=== PATIENT | female | born 1980 | race Caucasian/White ===

== ENCOUNTER 2021-03-08 08:07 | Emergency (ER) | payer BC, SELFPAY ==
--- NOTE | 2021-03-08 08:05 | ECG_ITS ---
APPROVED REPORT Exam: Resting ECG HR:74 bpm ECG Measurements Heart Rate 74 AXES ID 168 P 48 QRSd 94 QRS 16 QT 368 T 44 QTc 408 Conclusion Normal sinus rhythm Normal ECG Electronically signed by : Jimi Villareal MD 03/08/2021 19:55:49
[2021-03-08 08:09] VITALS: BP 137/88; PULSE 78; RESP 16; TEMP 36.6; O2SAT 98; BMI 41.1
--- NOTE | 2021-03-08 08:16 | XR_ITS ---
PROCEDURE INFORMATION: Exam: XR Chest Exam date and time: 03/08/2021 8:16 AM Age: 40 years old Clinical indication: Pain; Chest pressure; Additional info: Chest pain TECHNIQUE: Imaging protocol: XR of the chest. Views: 1 view. COMPARISON: No relevant prior studies available. FINDINGS: Lungs: No focal airspace disease. Pleural spaces: Unremarkable. No pleural effusion. No pneumothorax. Heart/Mediastinum: Cardiomediastinal silhouette is within normal limits. Bones/joints: Unremarkable. IMPRESSION: No acute cardiopulmonary abnormality.
[2021-03-08 08:25] LABS: Basophils % 0.7 % (0.1-2.0); Eosinophils # 0.1 K/mm3 (0.0-0.4); Eosinophils % 1.3 % (0.1-12.0); Hematocrit 39.8 % (37.0-47.0); Hemoglobin 13.6 g/dL (12.2-16.2); Lymphocytes # 2.2 K/mm3 (0.7-4.5); Lymphocytes % 36.2 % (10-50); Mean Corpuscular HGB Conc 34.2 g/dL (31.8-35.4); Mean Corpuscular Hemoglobin 26.7 pg (27.0-31.2); Mean Corpuscular Volume 78.1 fl (81-99); Mean Platelet Volume 7.8 fl (7.4-10.4); Monocytes # 0.3 K/mm3 (0.1-1.0); Monocytes % 4.8 % (1.7-9.3); Neutrophils # 3.5 K/mm3 (1.8-7.8); Neutrophils % 56.9 % (37.0-80.0); Platelet Count 352 K/mm3 (142-424); Red Cell Distribution Width 15.6 % (11.5-17.5); White Blood Count 6.1 K/mm3 (4.8-10.8)
[2021-03-08 08:26] LABS: Chloride 103 mmol/L (98-107)
--- NOTE | 2021-03-08 08:26 | HMH.EDGENADL ---
ED Disposition Clinical Impression: Racing heart beat Disposition: Home, Self-Care Condition on Discharge: Good Instructions: Anxiety and Panic Attacks (Alternative Therapy), DI for Anxiety -- Adult Additional Instructions: Please follow up with your primary care physician. Return to the emergency department for any new or concerning symptoms. Prescriptions: hydrOXYzine pamoate [Vistaril 25mg capsule] 25 mg PO Q8 PRN 28 Days #15 cap PRN Reason: Anxiety Prescription Printed Referrals: Lisset Cid APRN [Primary Care Provider] - - Critical Care Critical Care Time: No Attestation: On 03/08/21, the high probability of a clinically significant, sudden or life threatening deterioration of the following system(s) required my full and direct attention, intervention and personal management. The time I documented below is in addition to time spent performing reported procedures but includes the following listed in this critical care notation. Medical Decision Making - Medical Records Medical records reviewed: Yes: I reviewed the patient's medical records. - Kishore Inquiry Pt receiving controlled substance: No Vital Signs: 03/08/21 08:09 Temperature 98 F Temperature Source Oral Pulse Rate [Radial] 78 Respiratory Rate 16 Blood Pressure [Right Arm] 137/88 Blood Pressure Mean [Right Arm] 104 Blood Pressure Position [Right Arm] Sitting 02 Sat by Pulse Oximetry 98 Oxygen Delivery Method Room Air - Lab Data Lab results reviewed: Yes: I reviewed the patient's lab results. Lab Results 03/08/21 08:10: WBC 6.1, RBC 5.10, Hgb 13.6, Hct 39.8, MCV 78.1 L, MCH 26.7 L, MCHC 34.2, RDW 15.6, Plt Count 352, MPV 7.8, Neut % (Auto) 56.9, Lymph % (Auto) 36.2, [place] % (Auto) 4.8, Eos % (Auto) 1.3, Baso % (Auto) 0.7, Neut # (Auto) 3.5, Lymph # (Auto) 2.2, [place] # (Auto) 0.3, Eos # (Auto) 0.1, Baso # (Auto) 0.0 03/08/21 08:10: Sodium 139, Potassium 3.9, Chloride 103, Carbon Dioxide 24, Anion Gap 15.9 H, BUN 13, Creatinine 0.70, Estimated Creat Clear 180, Estimated GFR 92, Est GFR ( Amer) 111, Glucose 116 H, Calcium 9.1, Magnesium 1.9, Total Bilirubin 0.3, AST 21, ALT 20, Alkaline Phosphatase 85, Troponin I < 0.01, Total Protein 7.6, Albumin 4.6, Globulin 3.0, Albumin/Globulin Ratio 1.5 Result diagrams: 03/08/21 08:10 03/08/21 08:10 Orders (Tests/Meds): ED MEDICATIONS Discontinued Medications Generic Name Dose Route Start Last Admin Trade Name Yoan PRN Reason Stop Dose Admin Hydroxyzine Pamoate 25 mg 03/08/21 08:17 03/08/21 08:25 Hydroxyzine Pamoate 25mg Capsule PO 03/08/21 08:18 25 mg ONCE ONE Administration ORDERS Category Date Time Status CXR --portable [XR chest portable] Stat Exams 03/08/21 08:16 Taken Troponin I Q3H Lab 03/08/21 11:30 Ordered Troponin I Q3H Lab 03/08/21 14:30 Ordered Medical Decision Narrative: Patient is 40-year-old female presents emergency department chief complaint of rapid heart rate, historical irregular heart rate. Differential diagnosis in this patient includes A. fib with RVR, ACS, PVCs, electrolyte abnormality, anxiety among others. Given this plan order CBC, CMP, chest x-ray, EKG which showed normal sinus rhythm, devoid of PVCs, normal QRS, normal QT, will also order chest x-ray, CBC, CMP, treat patient with 25 p.o. Vistaril, and the temperature inspector and reassess. General Adult HPI - General Chief complaint: Chest Pain Stated complaint: chest pain Time Seen by Provider: 03/08/21 08:16 Mode of Arrival: Ambulatory Limitations: No Limitations Description of Symptoms (Recalled from ER Triage Doc. by RN): to ed per pvt car pt c/o intermittent episodes of heart racing which woke her up this am. c/o intermittent pain rt scapula, c/o sob like I need to take a big deep breath , nausea. pt denies any pain or rapid heart rate at present. denies any fever, cough, or leg pain - History of Present Illness HPI narrative: Patient is a 40-year-old female pres
[2021-03-08 08:27] LABS: Potassium 3.9 mmoL/L (3.5-5.1); Sodium 139 mmol/L (136-145)
[2021-03-08 08:29] LABS: Alanine Aminotransferase 20 U/L (12-78); Aspartate Amino Transferase 21 U/L (14-36); Blood Urea Nitrogen 13 mg/dl (7-17); Creatinine Clearance Estimated 180 mL/min (50-200); Estimated Glomerular Filt Rate 92 ml/min (>60); GFR (African American) 111 ML/MIN (>60)
[2021-03-08 08:30] VITALS: BP 134/91; PULSE 84; RESP 16; O2SAT 98
[2021-03-08 08:30] LABS: Albumin Level 4.6 g/dl (3.5-5.0); Albumin/Globulin Ratio 1.5 (1.1-1.8); Alkaline Phosphatase 85 U/L (38-126); Anion Gap 15.9 mEq/L (5-15); Bilirubin,Total 0.3 mg/dl (0.2-1.3); Calcium 9.1 mg/dl (8.4-10.2); Carbon Dioxide 24 mmol/L (22.0-30.0); Glucose 116 mg/dl (74-100); Magnesium 1.9 mg/dl (1.6-2.3); Total Protein,Serum 7.6 g/dl (6.3-8.2)
[2021-03-08 08:50] LABS: Troponin I < 0.01 ng/ml (0.00-0.034)
[2021-03-08 09:00] VITALS: BP 117/77; PULSE 78; RESP 16; O2SAT 98
[2021-03-08 09:12] VITALS: BP 117/77; PULSE 78; RESP 13; TEMP 36.8; O2SAT 96
== END 2021-03-08 09:14 | disposition home or self-care (01) ==
PROVIDERS: Emergency Provider Emergency Medicine; PCP Nurse Practitioner Family
DX: R07.9 Chest pain, unspecified (principal); R00.0 Tachycardia, unspecified; Z88.0 Allergy status to penicillin
CPT/HCPCS: 71045; 80053; 83735; 84484; 85025; 93005; 99282

== ENCOUNTER 2021-08-17 06:22 | Emergency (ER) | payer BC, SELFPAY ==
[2021-08-17] VITALS (16 sets, daily range): BP systolic 114–163; BP diastolic 61–82; PULSE 60–94; RESP 18; TEMP 36.8; O2SAT 96–100; BMI 41.5
--- NOTE | 2021-08-17 06:28 | ECG_ITS ---
APPROVED REPORT Exam: Resting ECG HR:82 bpm ECG Measurements Heart Rate 82 AXES MN 149 P 56 QRSd 92 QRS 60 QT 368 T 19 QTc 406 Conclusion SINUS RHYTHM NORMAL ECG UNCONFIRMED REPORT Electronically signed by : Jimi Villareal MD 08/19/2021 21:14:20
--- NOTE | 2021-08-17 06:38 | CT_ITS ---
PROCEDURE INFORMATION: Exam: CT Abdomen And Pelvis Without Contrast Exam date and time: 08/17/2021 7:13 AM Age: 40 years old Clinical indication: Abdominal pain; Flank; Right; Additional info: Abdominal pain- mostly right sided radiates TECHNIQUE: Imaging protocol: Computed tomography of the abdomen and pelvis without contrast. Radiation optimization: All CT scans at this facility use at least one of these dose optimization techniques: automated exposure control; mA and/or kV adjustment per patient size (includes targeted exams where dose is matched to clinical indication); or iterative reconstruction. COMPARISON: CR XR CHEST PORTABLE 03/08/2021 8:41 AM FINDINGS: Tubes, catheters and devices: Tubal devices are present. Liver: Normal. No mass. Gallbladder and bile ducts: Normal. No calcified stones. No ductal dilation. Pancreas: Normal. No ductal dilation. Spleen: The spleen is mildly prominent. Adrenal glands: Normal. No mass. Kidneys and ureters: At the level of L4-L5 there is a 2.5 mm calcification that appears to be outside of the right ureter and is likely in the ovarian vein. No definite ureteral calculus is identified and no evidence of hydronephrosis. Stomach and bowel: Unremarkable. No obstruction. No mucosal thickening. Appendix: The appendix is seen and is normal in appearance. Intraperitoneal space: Unremarkable. No free air. No significant fluid collection. Vasculature: Unremarkable. No abdominal aortic aneurysm. Lymph nodes: Several subcentimeter mesenteric lymph nodes. Urinary bladder: Unremarkable as visualized. Reproductive: Unremarkable as visualized. Bones/joints: Unremarkable. No acute fracture. Soft tissues: Unremarkable. IMPRESSION: 1. At the level of L4-L5 there is a 2.5 mm calcification that appears to be outside of the right ureter and is likely in the ovarian vein. No definite ureteral calculus is identified and no evidence of hydronephrosis. 2. No definite evidence of acute abdominal or pelvic pathology. Remainder of findings as described above.
[2021-08-17 06:46] LABS: Basophils # 0.2 K/mm3 (0-0.2); Basophils % 2.2 % (0.1-2.0); Eosinophils # 0.1 K/mm3 (0.0-0.4); Eosinophils % 1.2 % (0.1-12.0); Hematocrit 38.6 % (37.0-47.0); Hemoglobin 12.9 g/dL (12.2-16.2); Lymphocytes # 1.9 K/mm3 (0.7-4.5); Lymphocytes % 24.2 % (10-50); Mean Corpuscular HGB Conc 33.4 g/dL (31.8-35.4); Mean Corpuscular Hemoglobin 27.5 pg (27.0-31.2); Mean Corpuscular Volume 82.1 fl (81-99); Mean Platelet Volume 7.5 fl (7.4-10.4); Monocytes # 0.3 K/mm3 (0.1-1.0); Monocytes % 4.2 % (1.7-9.3); Neutrophils # 5.2 K/mm3 (1.8-7.8); Neutrophils % 68.1 % (37.0-80.0); Platelet Count 329 K/mm3 (142-424); Red Cell Distribution Width 15.2 % (11.5-17.5); White Blood Count 7.7 K/mm3 (4.8-10.8)
[2021-08-17 06:52] LABS: Amylase 45 U/L (30-110)
[2021-08-17 06:53] LABS: Alanine Aminotransferase 30 U/L (12-78); Albumin Level 4.5 g/dl (3.5-5.0); Albumin/Globulin Ratio 1.6 (1.1-1.8); Alkaline Phosphatase 104 U/L (38-126); Anion Gap 13.9 mEq/L (5-15); Aspartate Amino Transferase 25 U/L (14-36); Bilirubin,Total 0.2 mg/dl (0.2-1.3); Blood Urea Nitrogen 11 mg/dl (7-17); Calcium 10.1 mg/dl (8.4-10.2); Carbon Dioxide 26 mmol/L (22.0-30.0); Chloride 103 mmol/L (98-107); Creatinine Clearance Estimated 90 mL/min (50-200); Estimated Glomerular Filt Rate 92 ml/min (>60); GFR (African American) 111 ML/MIN (>60); Globulin 2.8 g/dL (1.3-3.2); Glucose 144 mg/dl (74-100); Potassium 3.9 mmoL/L (3.5-5.1); Sodium 139 mmol/L (136-145); Total Protein,Serum 7.3 g/dl (6.3-8.2)
[2021-08-17 06:59] LABS: Microscopic, Urine URINE MICROSCOPIC (MICROSCOPIC)
[2021-08-17 07:01] LABS: Appearance,Urine CLEAR (Clear); Bilirubin,Urine Negative (Negative); Blood, Urine Negative (Negative); Color,Urine YELLOW (Yellow); Glucose,Urine (UA) Negative (Negative); Ketones,Urine Negative (Negative); Leukocyte Esterase,Urine Negative (Negative); Nitrate,Urine Negative (Negative); PH,Urine 5.5 (5.0-8.5); Protein,Urine Negative (Negative); Specific Gravity, Urine <= 1.005 (1.005-1.030); Urobilinogen,Urine 0.2 EU/dl (0.2)
[2021-08-17 07:07] LABS: HCG Qualitative, Serum Negative (Negative)
[2021-08-17 07:11] LABS: Procalcitonin 0.047 ng/mL (0.0-2.0)
[2021-08-17 07:16] LABS: Bacteria,Urine Trace /lpf; WBC,Urine Occasional #/hpf (0-3)
--- NOTE | 2021-08-17 07:22 | PC.NURSE ---
pt back from radiology by wheelchair with air launch weapons technician
[2021-08-17 07:24] LABS: Erythrocyte Sedimentation Rate 45 mm/hr (0-20)
--- NOTE | 2021-08-17 08:19 | PC.NURSE ---
patient given water; okay's by Dr. Amaro
--- NOTE | 2021-08-17 08:25 | PC.NURSE ---
Dr. Amaro at speaking with patient
--- NOTE | 2021-08-17 08:27 | HMH.EDGENADL ---
ED Disposition Clinical Impression: Abdominal pain Qualifiers: Abdominal location: epigastric Qualified Code(s): R10.13 - Epigastric pain Disposition: Home, Self-Care Condition on Discharge: Good Instructions: DI for Acute Pain -- Adult Additional Instructions: call pcp for follow up Referrals: Lisset Cid APRN [Primary Care Provider] - - Critical Care Critical Care Time: No Attestation: On 08/17/21, the high probability of a clinically significant, sudden or life threatening deterioration of the following system(s) required my full and direct attention, intervention and personal management. The time I documented below is in addition to time spent performing reported procedures but includes the following listed in this critical care notation. Medical Decision Making - Medical Records Medical records reviewed: Yes: I reviewed the patient's medical records. - Kishore Inquiry Pt receiving controlled substance: No Vital Signs: 08/17/21 06:32 08/17/21 06:58 08/17/21 07:14 Temperature 98.2 F Temperature Source Oral Pulse Rate 75 78 Pulse Rate [Apical] 94 H Respiratory Rate 18 Blood Pressure 149/73 H 121/73 Blood Pressure [Right Arm] 155/78 H Blood Pressure Mean 112 89 Blood Pressure Mean [Right Arm] 103 Blood Pressure Source Blood Pressure Source [Right Arm] Automatic Cuff Blood Pressure Position Blood Pressure Position [Right Arm] Supine 02 Sat by Pulse Oximetry 99 97 100 Oxygen Delivery Method Room Air Room Air Room Air 08/17/21 08:06 08/17/21 08:13 08/17/21 08:28 Temperature Temperature Source Pulse Rate 76 69 64 Pulse Rate [Apical] Respiratory Rate Blood Pressure 119/75 131/73 114/62 Blood Pressure [Right Arm] Blood Pressure Mean 89 95 79 Blood Pressure Mean [Right Arm] Blood Pressure Source Automatic Cuff Automatic Cuff Blood Pressure Source [Right Arm] Blood Pressure Position Sitting Sitting Blood Pressure Position [Right Arm] 02 Sat by Pulse Oximetry 99 99 100 Oxygen Delivery Method Room Air Room Air Room Air 08/17/21 08:43 08/17/21 08:58 08/17/21 09:13 Temperature Temperature Source Pulse Rate 63 66 70 Pulse Rate [Apical] Respiratory Rate Blood Pressure 125/77 133/64 115/69 Blood Pressure [Right Arm] Blood Pressure Mean 93 87 89 Blood Pressure Mean [Right Arm] Blood Pressure Source Blood Pressure Source [Right Arm] Blood Pressure Position Blood Pressure Position [Right Arm] 02 Sat by Pulse Oximetry 98 99 100 Oxygen Delivery Method Room Air Room Air 08/17/21 09:28 Temperature Temperature Source Pulse Rate 60 Pulse Rate [Apical] Respiratory Rate Blood Pressure 119/61 Blood Pressure [Right Arm] Blood Pressure Mean 80 Blood Pressure Mean [Right Arm] Blood Pressure Source Blood Pressure Source [Right Arm] Blood Pressure Position Blood Pressure Position [Right Arm] 02 Sat by Pulse Oximetry 96 Oxygen Delivery Method - Lab Data Lab results reviewed: Yes: I reviewed the patient's lab results. Lab Results 08/17/21 06:33: WBC 7.7, RBC 4.70, Hgb 12.9, Hct 38.6, MCV 82.1, MCH 27.5, MCHC 33.4, RDW 15.2, Plt Count 329, MPV 7.5, Neut % (Auto) 68.1, Lymph % (Auto) 24.2, [place] % (Auto) 4.2, Eos % (Auto) 1.2, Baso % (Auto) 2.2 H, Neut # (Auto) 5.2, Lymph # (Auto) 1.9, [place] # (Auto) 0.3, Eos # (Auto) 0.1, Baso # (Auto) 0.2 08/17/21 06:33: C-Reactive Protein 21.0 H, Amylase 45 08/17/21 06:33: ESR 45 H 08/17/21 06:33: Sodium 139, Potassium 3.9, Chloride 103, Carbon Dioxide 26, Anion Gap 13.9, BUN 11, Creatinine 0.70, Estimated Creat Clear 90, Estimated GFR 92, Est GFR ( Amer) 111, Glucose 144 H, Calcium 10.1, Total Bilirubin 0.2, AST 25, ALT 30, Alkaline Phosphatase 104, Total Protein 7.3, Albumin 4.5, Globulin 2.8, Albumin/Globulin Ratio 1.6, Procalcitonin 0.047 08/17/21 06:33: Serum HCG, Qual Negative 08/17/21 06:47: Urine Color Yellow, Urine Appearance Clear, Urine pH 5.5, Ur Specifi
--- NOTE | 2021-08-17 08:30 | PC.NURSE ---
Bing José, RN at
--- NOTE | 2021-08-17 09:08 | CT_ITS ---
PROCEDURE INFORMATION: Exam: CTA Chest With Contrast Exam date and time: 08/17/2021 9:35 AM Age: 40 years old Clinical indication: Shortness of breath; Additional info: SOB, chest and epigastric pain-- CT abd already performed-- TECHNIQUE: Imaging protocol: Computed tomographic angiography of the chest with contrast. 3D rendering (Not supervised by radiologist): MIP and/or 3D reconstructed images were created by the technologist. Radiation optimization: All CT scans at this facility use at least one of these dose optimization techniques: automated exposure control; mA and/or kV adjustment per patient size (includes targeted exams where dose is matched to clinical indication); or iterative reconstruction. Contrast material: ISOVUE; Contrast volume: 70 ml; Contrast route: INTRAVENOUS (IV); COMPARISON: CR XR CHEST PORTABLE 03/08/2021 8:41 AM FINDINGS: Pulmonary arteries: Adequate pulmonary vascular opacification is present. Evaluation of the pulmonary arterial vessels demonstrates no CT evidence of pulmonary embolus. Aorta: Unremarkable. No aortic aneurysm. No aortic dissection. Lungs: Minimal dependent changes are present in the lung bases. Mild right hemidiaphragm elevation. Pleural spaces: Unremarkable. No pneumothorax. No pleural effusion. Heart: Unremarkable. No cardiomegaly. No pericardial effusion. Lymph nodes: Unremarkable. No enlarged lymph nodes. Bones/joints: Unremarkable. No acute fracture. Soft tissues: Unremarkable. IMPRESSION: Adequate pulmonary vascular opacification is present. Evaluation of the pulmonary arterial vessels demonstrates no CT evidence of pulmonary embolus.
--- NOTE | 2021-08-17 09:25 | PC.NURSE ---
Radiology notified of CTA chest for patient; spoke with Nelly
--- NOTE | 2021-08-17 09:42 | PC.NURSE ---
Pt states that her pain has improved
--- NOTE | 2021-08-17 09:44 | PC.NURSE ---
patient back from radiology by wheelchair with upholstery technician
== END 2021-08-17 11:27 | disposition home or self-care (01) ==
PROVIDERS: Emergency Provider Emergency Medicine; PCP Nurse Practitioner Family
DX: R10.13 Epigastric pain (principal); R11.2 Nausea with vomiting, unspecified; Z88.0 Allergy status to penicillin
CPT/HCPCS: 71275; 74176; 80053; 81001; 82150; 84145; 84703; 85025; 85651; 86140; 93005; 96361; 96374; 96375; 99284; Q9967

== ENCOUNTER 2024-10-21 11:15 | Emergency (ER) | payer BC, SELFPAY ==
[2024-10-21 12:00] VITALS: BP 156/60; PULSE 60; RESP 18; TEMP 36.9; O2SAT 97; BMI 43.7
--- NOTE | 2024-10-21 12:08 | XR_ITS ---
PROCEDURE INFORMATION: Exam: XR Left Knee Exam date and time: 10/21/2024 12:04 PM Age: 43 years old Clinical indication: Pain; Knee; Left; Additional info: L knee medial posterior tenderness / pop sound TECHNIQUE: Imaging protocol: Radiologic exam of the left knee. Views: 3 views. COMPARISON: No relevant prior studies available. FINDINGS: Bones/joints: No acute fracture or dislocation. Small suprapatellar joint effusion. Soft tissues: Normal. IMPRESSION: Small suprapatellar joint effusion.
[2024-10-21] MEDS: APAP/HYDROCODONE 325MG/7.5MG TAB 1 TAB PO (12:18)
--- NOTE | 2024-10-21 12:25 | HMH.EDGENADL ---
Discharge Plan Disposition Patient Disposition: Home, Self-Care Prescriptions Prescriptions: New meloxicam 7.5 mg tablet 7.5 mg PO DAILY 7 Days Qty: 7 0RF No Action hydroxyzine pamoate 25 MG capsule 25 mg PO Q8 PRN (Reason: Anxiety) 28 Days Qty: 15 0RF Rx Instructions: Take as needed for anxiety, do not take more than 3 within a 24 hour period. Referrals Follow up/Referrals: Anuj Peña PA [Primary Care Provider, Medical] - See instructions Rigo Cooley DO [Staff Physician, Orthopedics] - See instructions Activity Restrictions/Add. Instructions Additional Instructions/Restrictions: Today you were evaluated in the emergency department for left knee pain. The imaging of your left knee does not show any acute findings, however I am concerned about a ligamentous injury. Please wear the elastic wrap that we discussed, use your crutches that you already have. Please call Dr. Cooley's office Wednesday morning for a follow-up appointment. Take mobic with food, do not take additional NSAIDS. Clinical Impressions Clinical Impression: Acute pain of left knee Instructions Patient Instructions: DI for Knee Pain Print Language Print Language: Albanian Discharge ED Provider: Jonny Coombs General Adult HPI <Genny Moore APRN - Last Filed: 10/21/24 12:54> General Chief complaint: Extremity Injury, Lower Stated complaint: ao 10/19/24 L knee pain Time Seen by Provider: 10/21/24 12:01 Mode of Arrival: Ambulatory Source of Information: Patient Description of Symptoms (Recalled from ER Triage Doc. by RN): left knee pain. was walking and felt something crack has been unable to bare weight since. happened History of Present Illness HPI narrative: patient is a 43-year-old female no significant PMH who presents to the ED with complaints of left knee pain and inability to bear weight. 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 Related Data Previous Rx's ?Medication ?Instructions ?Recorded hydroxyzine pamoate 25 mg capsule 25 mg PO Q8 PRN Anxiety 28 days 03/08/21 #15 caps meloxicam 7.5 mg tablet 7.5 mg PO DAILY 7 days #7 tabs 08/02/25 Allergies Allergy/AdvReac Type Severity Reaction Status Date / Time PCN Allergy Intermediate I-HIVES Uncoded 03/09/17 15:18 [facility] <Genny Moore APRN - Last Filed: 10/21/24 12:54> [facility] Disclaimer: The information contained in this section may have been updated after the patient was seen, as this information can be updated by other users. Social History (Updated 10/21/24 @ 12:54 by Genny Moore APRN) Smoking Status: Never smoker alcohol intake: never current occupational status: employed Travel in the last 8 weeks?: None Have you lived/traveled outside [place] in past 30 days?: No Contact w/someone who lives/traveled outside US past 30 days?: No Exposure to someone with infectious disease in past 14 days?: No Do you have a fever (greater than 100.4 F or 38 C)?: No Have you tested positive for COVID-19?: No Exposed to someone with COVID-19 in past 14 days?: No Do you have a sore throat?: No Do you have a cough?: No Do you have any weakness?: No Do you have any diarrhea?: No Are you experiencing any unusual bleeding?: No Do you have any muscle aches/pain?: No Do you have any abdominal pain?: No Are you experiencing loss of taste or smell?: No Other Medical History Have you received the Flu Vaccine for this season: Yes Have you received the Pneumonia Vaccine: No <Genny Moore APRN - Last Filed: 10/21/24 12:54> ROS Obtained: Yes Systems reviewed as appropriate & no additional complaints except as documented Physical Exam <Genny Moore APRN - Last Filed: 10/21/24 12:54> General General appearance: alert and in no apparent distress Head Head exam: atraumatic Neck Neck exam: Present normal inspection Chest Chest inspection: Present normal inspection Respiratory Respiratory exam: Present normal lung sounds bilaterally Cardiovascular Cardiovascular exam: Present regular rate Extremities Exam Extremities exam: Present other (generalized swelling of the left knee, medial left knee tenderness upon palpation, posterior knee tenderness upon palpation. Neurovascular status intact. Pain with ROM of left lower extremity. Knee pain with extension of left foot.) Neurological Exam Neurological exam: Present alert and oriented X3 Medical Decision Making <Genny Moore APRN - Last Filed: 10/21/24 12:54> Medical Records Screening: Per USPSTF and CDC recommendations, given the prevalence of disease in our region, it is our hospital?s policy to screen for HIV and viral Hepatitis for all patients aged 18 and over and those with ongoing risk factors. Kishore Inquiry Pt receiving controlled substance: No Vital Signs: 10/21/24 12:00 10/21/24 13:00 Temperature 98.4 F 98.4 F Temperature Source Oral Oral Pulse Rate 79 Pulse Rate [Right] 60 Respiratory Rate 18 16 Blood Pressure 145/78 H Blood Pressure [Left Arm] 156/60 H Blood Pressure Mean [Left Arm] 92 Blood Pressure Source Automatic Cuff Blood Pressure Position Sitting 02 Sat by Pulse Oximetry 97 Oxygen Delivery Method Room Air Room Air Orders (Tests/Meds): ED MEDICATIONS Discontinued Medications Generic Name Dose Route Start Last Admin Trade Name Freq PRN Reason Stop Dose Admin Hydrocodone Bitart/Acetaminophen 1 tab 10/21/24 12:09 10/21/24 12:18 Apap/Hydrocodone 325mg/7.5mg Tab PO 10/21/24 12:10 1 tab ONCE ONE Administration ORDERS Category Date Time Status Knee XR left 3 views [XR knee LT 3V] Stat Exams 10/21/24 12:08 Completed Medical Decision Narrative: In summary, patient is a 43-year-old female no significant PMH who presents to the ED with complaints of left knee pain and inability to bear weight. 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 Today she is unable to ambulate, ambulated into the ED with her neighbors crutches. Denies any previous injury to this knee. Has not had anything for pain prior to arrival. Denies fever, chills, body aches, redness, warmth, trauma, chest pain, shortness of breath. Upon initial evaluation patient is alert, oriented and cooperative. She is stable. Physical exam remarkable for generalized swelling of the left knee, medial left knee tenderness upon palpation, posterior knee tenderness upon palpation. Neurovascular status intact. Pain with ROM of left lower extremity. Knee pain with extension of left foot. Discussed with patient that she most likely has meniscal injury, we will obtain x-ray and administer pain medication. I informally reviewed the x-ray, no acute findings noted. Discussed with patient to obtain the knee brace, continue to use her crutches that she has at home. Advised her to follow-up with Dr. Cooley Wednesday. We discussed return precautions to the ED. I advised that I sent her prescription for Mobic to the pharmacy, advised her not to take additional NSAIDs with this and to take with food. <Jonny Coombs MD - Last Filed: 10/21/24 19:17> Vital Signs: 10/21/24 12:00 10/21/24 13:00 Temperature 98.4 F 98.4 F Temperature Source Oral Oral Pulse Rate 79 Pulse Rate [Right] 60 Respiratory Rate 18 16 Blood Pressure 145/78 H Blood Pressure [Left Arm] 156/60 H Blood Pressure Mean [Left Arm] 92 Blood Pressure Source Automatic Cuff Blood Pressure Position Sitting 02 Sat by Pulse Oximetry 97 Oxygen Delivery Method Room Air Room Air Orders (Tests/Meds): ED MEDICATIONS Discontinued Medications Generic Name Dose Route Start Last Admin Trade Name Yoan PRN Reason Stop Dose Admin Hydrocodone Bitart/Acetaminophen 1 tab 10/21/24 12:09 10/21/24 12:18 Apap/Hydrocodone 325mg/7.5mg Tab PO 10/21/24 12:10 1 tab ONCE ONE Administration ORDERS Category Date Time Status Knee XR left 3 views [XR knee LT 3V] Stat Exams 10/21/24 12:08 Completed Medical Decision Narrative: In summary, patient is a 43-year-old female no significant PMH who presents to the ED with complaints of left knee pain and inability to bear weight. 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 Today she is unable to ambulate, ambulated into the ED with her neighbors crutches. Denies any previous injury to this knee. Has not had anything for pain prior to arrival. Denies fever, chills, body aches, redness, warmth, trauma, chest pain, shortness of breath. Upon initial evaluation patient is alert, oriented and cooperative. She is stable. Physical exam remarkable for generalized swelling of the left knee, medial left knee tenderness upon palpation, posterior knee tenderness upon palpation. Neurovascular status intact. Pain with ROM of left lower extremity. Knee pain with extension of left foot. Discussed with patient that she most likely has meniscal injury, we will obtain x-ray and administer pain medication. I informally reviewed the x-ray, no acute findings noted. Discussed with patient to obtain the knee brace, continue to use her crutches that she has at home. Advised her to follow-up with Dr. Cooley Wednesday. We discussed return precautions to the ED. I advised that I sent her prescription for Mobic to the pharmacy, advised her not to take additional NSAIDs with this and to take with food. I was consulted by the RODNEY, and we discussed the complexity of the problems being addressed. I approve the treatment and management plan for this patient's care in the emergency department, thus performing a substantive portion of the medical decision making. Jonny Coombs MD Critical Care <Genny Moore APRN - Last Filed: 10/21/24 12:54> Critical Care Time Critical Care Time: No
[2024-10-21 13:00] VITALS: BP 145/78; PULSE 79; RESP 16; TEMP 36.9; O2SAT 99
== END 2024-10-21 13:01 | disposition home or self-care (01) ==
PROVIDERS: Emergency Provider Student in an Organized Health Care Education/Training Program; PCP Student in an Organized Health Care Education/Training Program
DX: M25.562 Pain in left knee (principal)
CPT/HCPCS: 73562; 99283

== ENCOUNTER 2024-10-27 09:56 | Outpatient (CLI) | payer BC, SELFPAY ==
--- NOTE | 2024-10-27 10:00 | MR_ITS ---
FINAL REPORT CLINICAL HISTORY: Knee injury, pain medial and lateral, instability, nki FINDINGS: Multi planar MR imaging was performed of the left knee. The anterior and posterior cruciate ligaments are intact. The quadriceps and patellar tendons are intact. There is a large tear of the posterior horn of the medial meniscus. Linear signal extending into the anterior horn also represents a tear. The medial and lateral collateral ligaments appear intact. The medial and lateral retinacula appear intact. There is no evidence of bone marrow edema or osteochondral defect. There is a small joint effusion. Popliteal cyst measures 6 cm in craniocaudal dimension. IMPRESSION: Tear involved in the anterior and posterior horns of the medial meniscus. Popliteal cyst. Reviewed, Interpreted and Dictated by Florencio Bravo MD Transcribed by Cindi Quintanilla Authenticated and [facility]
== END 2024-10-27 23:59 | disposition home or self-care (01) ==
LOC: RAD 09:57
PROVIDERS: PCP Student in an Organized Health Care Education/Training Program; Visit Provider Physician Assistant
DX: S83.242A Other tear of medial meniscus, current injury, left knee, initial encounter (principal); M71.22 Synovial cyst of popliteal space [Baker], left knee
CPT/HCPCS: 73721

== ENCOUNTER 2024-11-14 10:39 | Outpatient (CLI) | payer BC, SELFPAY ==
[2024-11-14 08:21] VITALS: BMI 42.9
--- NOTE | 2024-11-14 10:54 | XR_ITS ---
FINAL REPORT CLINICAL HISTORY: pre op surgery- lt knee hypertension FINDINGS: 2 views of the chest were obtained . The heart is normal in size. The mediastinum is within normal limits. The lungs are clear. There is no pneumothorax. Osseous structures are unremarkable. IMPRESSION: No acute cardiopulmonary process. Reviewed, Interpreted and Dictated by Rani Méndez MD Transcribed by Janina Vu Authenticated and [facility]
--- NOTE | 2024-11-14 11:18 | ECG_ITS ---
APPROVED REPORT Exam: Resting ECG HR:58 bpm ECG Measurements Heart Rate 58 AXES NH 168 P 41 QRSd 101 QRS 25 QT 397 T 21 QTc 393 Conclusion SINUS BRADYCARDIA o/w normal ECG UNCONFIRMED REPORT Electronically signed by : Jimi Villareal MD 11/17/2024 11:59:10
[2024-11-14 11:38] LABS: Chloride 101 mmol/L (98-107)
[2024-11-14 11:39] LABS: Potassium 3.9 mmoL/L (3.5-5.1); Sodium 138 mmol/L (136-145)
[2024-11-14 11:42] LABS: Anion Gap 12.9 mEq/L (5-15); Blood Urea Nitrogen 13 mg/dl (7-17); Calcium 9.1 mg/dl (8.4-10.2); Carbon Dioxide 28 mmol/L (22.0-30.0); Creatinine Clearance Estimated 87 mL/min (50-200); Creatinine,Serum 0.70 mg/dl (0.52-1.04); Estimated Glomerular Filt Rate 90 ml/min (>60); GFR (African American) 109 ML/MIN (>60); Glucose 172 mg/dl (74-100)
[2024-11-14 11:52] LABS: HCG Qualitative, Serum Negative (Negative)
[2024-11-14 11:53] LABS: Hematocrit 33.0 % (37.0-47.0); Hemoglobin 10.6 g/dL (12.2-16.2); Immature Granulocytes % 0.4 %; Mean Corpuscular HGB Conc 32.1 g/dL (31.8-35.4); Mean Corpuscular Hemoglobin 27.0 pg (27.0-31.2); Mean Corpuscular Volume 84.2 fl (81-99); Nucleated Red Blood Cells % 0 %; Platelet Count 327 K/mm3 (142-424); Red Blood Count 3.92 M/mm3 (4.20-5.40); Red Cell Distribution Width-SD 45.8 fL; White Blood Count 7.7 K/mm3 (4.8-10.8)
== END 2024-11-14 23:59 | disposition home or self-care (01) ==
LOC: PREOP 10:39
PROVIDERS: PCP Student in an Organized Health Care Education/Training Program; Visit Provider Orthopaedic Surgery
DX: Z01.810 Encounter for preprocedural cardiovascular examination (principal); Z01.811 Encounter for preprocedural respiratory examination; Z01.812 Encounter for preprocedural laboratory examination; I10 Essential (primary) hypertension; R00.1 Bradycardia, unspecified; R94.31 Abnormal electrocardiogram [ECG] [EKG]
CPT/HCPCS: 71046; 80048; 84703; 85025; 93005

== ENCOUNTER 2024-11-15 08:16 | Day surgery (SDC) | payer BC, SELFPAY ==
[2024-11-14 10:45] VITALS: BP 154/76; PULSE 76; RESP 17; TEMP 36.6; O2SAT 96
[2024-11-14 11:00] VITALS: BP 137/86; PULSE 68; RESP 19; TEMP 36.6; O2SAT 98
[2024-11-14 13:35] VITALS: BMI 42.9
[2024-11-15] VITALS (8 sets, daily range): BP systolic 141–187; BP diastolic 59–96; PULSE 65–93; RESP 18; TEMP 36.6–36.9; O2SAT 93–100
--- NOTE | 2024-11-15 08:45 | EXP.ANES.CKL ---
[facility] Disclaimer: The information contained in this section may have been updated after the patient was seen, as this information can be updated by other users. Medical History Anxiety Anemia HTN (hypertension) Surgical History History of tonsillectomy History of wisdom tooth extraction Family History Other Family history of heart disease Social History Smoking Status: Never smoker alcohol intake: never substance use type: denies use current occupational status: employed Travel in the last 8 weeks?: Inside the [place] [facility] Anesthesia Checklist Patient Identification Patient Identification: Arm Band and Verbal (Name & ) Structural Data Admitted From: Home Planned Operative Procedure/s: Left knee arthroscopy Consent for Planned Operative Procedure(s) Verified: Yes Verified Documents: Surgical Consent NPO Status Verified Time NPO: 00:00 Chart Verification Results Verified: ECG Additional verifications Anesthesia Reactions: No Hx Blood Transfusions: No Blood Transfusion Reaction: No Airway Assessment Mallampati Score:: Class II C-Spine Mobility Assessed: Yes TMJ Mobility Assessed: Yes Dentition: Good Dentition Neurological Assessment Level of Consciousness: Awake, Alert and Appropriate Hx Seizures: No Numbness or tingling in extremities: No Anesthesia Plan Anesthesia Risk discussed: Yes Anesthesia Plan: Verified ASA Class: II Anesthesia Type: General
[2024-11-15] MEDS: CLINDAMYCIN PHOSPHATE/D5W 900 MG/50 ML PIGGYBACK 100 MG IV (09:01)
[2024-11-15] MEDS: BUPIVACAINE 0.25% 30ML VIAL 75 MG (09:31)
[2024-11-15] MEDS: SODIUM CHLORIDE IRRIG SOLUTION 12,000 ML 25 ML IR (09:32)
--- NOTE | 2024-11-15 10:21 | EXP.ANES.I ---
[facility] Anesthesia Record Part I Anesthesia Record I Intake, IV Amount: 750 Hydration: Adequate Estimated blood loss (mL): 0 Urine output (mL): 0 Blood Products used (#): none Blood Pressure: 187/87 SaO2: 93 Pulse Rate: 93 Airway Patency: Patent Respiratory Rate: 18 Temperature: 98.4 F Patient is:: Drowsy and Stable Stable to PACU at:: 10:11
[2024-11-15] MEDS: HYDROMORPHONE 2MG/ML SYRINGE 0.5 MG IV (10:24)
--- NOTE | 2024-11-15 10:48 | EXP.OP.NOTE ---
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 Left knee marked with yes and my initials. Transferred operative suite. Placed upon the operating bed. General anesthesia administered airway secured. Left lower extremity prepped and draped within the knee naqvi. Once prepped and draped final operative timeout performed to identify proper patient procedure and extremity. Everyone involved in the case agreed. Is no counter indications beginning. Did receive preoperative antibiotics. Marking pen was used to harrison the bony landmarks of the knee and standard portal sites. Esmarch was used to exsanguinate the extremity pneumatic tourniquet inflated to 300 mmHg. Skin knife is used to incise standard anterior lateral portal and blunt with trocar was placed in the patellofemoral joint exchange with a camera. I swept directly into the medial joint line where the anterior medial portal was made with the help of an 18-gauge spinal needle. Within the medial joint line a probe was placed there was tearing of the body and posterior horn of the medial meniscus using a combination of straight biter and sucker shaver partial medial meniscectomy was performed back to [facility]. Once this is complete evaluation of the medial femoral condyle was performed a probe was placed there was diffuse grade III chondromalacia along the most medial rim of the medial femoral condyle there was some impinging synovitis and thickening of scar tissue medially which was debrided with the sucker shaver which allowed for the knee to be flexed and extended without impingement. Attention is brought intercondylar notch the ACL seen and intact tension about the lateral joint line the lateral joint line was pristine there was an intact meniscus intact cartilage. Scope into the medial and lateral gutters and no further pathology was seen cameras removed the joint was drained local anesthesia infiltrated the portal sites skin closed with nylon stitch sterile dressing placed from toe to thigh patient recommend esthesia taken recovery in stable condition Condition: stable Disposition: PACU Complications:: None apparent
--- NOTE | 2024-11-15 14:50 | P.PNANES_ITS ---
[facility] Anesthesia Record Part II Anesthesia Record Part II Discharge Time: 10:41 Destination: Surgical Day Care (OP Surgery) PACU nurse assessment reviewed?: Yes Patient Condition:: Good Anesthesia Complications:: None Swallowing reflex intact?: Yes Airway Patency: Patent Cyanosis?: No Blood Pressure: 141/77 SaO2: 100 Respiratory Rate: 18 Pulse Rate: 70 Temperature: 98.4 F Mental Status: Alert & Oriented Pain level:: 5 Nausea and/or vomitting:: None Intake, IV Amount: 0 Hydration: Adequate
== END 2024-11-15 11:55 | disposition home or self-care (01) ==
PROVIDERS: PCP Student in an Organized Health Care Education/Training Program; Visit Provider Orthopaedic Surgery
PROC: (CPT 29870; principal; 2024-11-15 10:30)
DX: S83.242A Other tear of medial meniscus, current injury, left knee, initial encounter (principal); X58.XXXA Exposure to other specified factors, initial encounter; M94.272 Chondromalacia, left ankle and joints of left foot; F41.9 Anxiety disorder, unspecified; I10 Essential (primary) hypertension; Z88.0 Allergy status to penicillin; Z79.899 Other long term (current) drug therapy
CPT/HCPCS: 29881; 96374; J0665; J0736; J1100; J1171; J2003; J2250; J2405; J2704; J3010

== ENCOUNTER 2025-01-17 09:00 | Outpatient (RCR) | payer BC, SELFPAY ==
--- NOTE | 2025-01-09 13:47 | HMH.PTOPEV ---
PT Evaluation Rehab PT Outpatient Evaluation Start: 01/09/25 13:05 Freq: Status: Active Protocol: Document 01/09/25 13:05 JAYLENEFILI (Rec: 01/09/25 13:47 KRAIG [id number]) E-signed By Jayesh Wilburn, PT Outpatient Therapy Subjective History Subjective History Pt is a 44 yof who presents Status post left knee arthroscopy with partial medial meniscectomy performed on 11/15/2024. Pt reports that she has held off of PT due to also having a hysterectomy in November. Pt reports that overall her pain has improved since having her knee surgery. Pt reports that she still has some difficulty with walking longer periods and reports episodes of knee instability and buckling. Pt reports that she has substantial difficulty with squatting and a substantial difficulty with stairs. Pt reports that she is currently on a 10# lifting restriction from the hysterectomy. Pt denies any other remarkable PMH. 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 Chief Complaint Pain,Stiff,Gives out/Unstable,Weakness Symptom Type Sharp,Stabbing,Burning Symptoms Relieved By Ice Symptoms Aggravated Standing,Physical Activity,Walking,Lifting By Prior Functional None Limitations Current Functional Lifting,Housework,Standing,Squatting,Walking,Stairs, Limitations Balance Symptom Description Intermittent,Activity Dependent Level of pain today 0 (0-10) Pain scale - at its 0 best (0-10) Pain scale - at its 8 worst (0-10) Hip/Knee Eval Gait Observation General Gait Pattern Antalgic Gait,Decrease Weight Bear (L),Decrease Stride Observation Lngth (R) Assistive Device Assistive Devices None / NA Palpation Tenderness left Knee Palpation Tenderness Finding Knee Palpation TTP 3/4 to inferior patella and patellar tendon Overall Comment MMT Hip Flexion Strength 4- Good- Grade Hip Abduction 4 Good Strength Grade Hip Adduction 4- Good- Strength Grade Hip Extension 3+ Fair+ Strength Grade Knee Extension 4- Good- Strength Grade Knee Flexion 4 Good Strength Grade ROM Knee Extension 0 Active Range of Motion (degrees) Knee Extension 0 Passive Range of Motion (degrees) Knee Flexion Active 106 Range of Motion ( degrees) Knee Flexion Passive 108 Range of Motion ( degrees) Lower Extremity Functional Index Activities Today, do you or would you have any difficulty at all with: a.Any of your usual A little bit of difficulty work, housework or school activities b. Your usual Moderate difficulty hobbies, recreational or sporting activities c. Getting into or No difficulty out of the bath d. Walking between No difficulty rooms e. Putting on your A little bit of difficulty shoes or socks f. Squatting Quite a bit of difficulty g. Lifting an object No difficulty , like a bag of groceries from the floor h. Performing light No difficulty activities around your home i. Performing heavy Quite a bit of difficulty activities around your home j. Getting into or No difficulty out of a car k. Walking 2 blocks A little bit of difficulty l. Walking a mile A little bit of difficulty m. Going up or down Moderate difficulty 10 stairs (about 1 flight of stairs) n. Standing for 1 A little bit of difficulty hour o. Sitting for 1 No difficulty hour p. Running on even Extreme difficulty or unable to perform activity ground q. Running on uneven Extreme difficulty or unable to perform activity ground r. Making sharp Extreme difficulty or unable to perform activity turns while running fast s. Hopping Extreme difficulty or unable to perform activity t. Rolling over in No difficulty bed LEFI Score Lower Extremity 49 Functional Index Score Outpatient Therapy Assessment Impairments Problems/ Palpation Tenderness,Impaired Range of Motion,Impaired Impairmments Strength,Impaired Gait Pattern,Impaired Walking, Impaired Standing,Impaired Lifting,Impaired Household Care,Impaired Stair Climbing,Impaired Squatting, Impaired Work Activities,Impaired Balance,Subjective C/ O Pain,Impaired Self Care/Self Management Prognosis Rehab Potential Good Comment w HEP compliance Clinical Impression Consistent with Yes Diagnosis Consistent with L knee arthroscopy Additional details: s/p L knee arthroscopy performed on 11/15/2024 PT Patient Goals PT Patient Goals PT Short Term In 4 weeks: Patient Goals 1. Patient will improve strength of L hip/knee complex to 4/5 globally to improve gait mechanics, improve static/dynamic balance and to decrease fall risk. 2. Patient will demonstrate a reduction in trigger point sensitivity to Grade 2 with manual palpation to improve comfort during activity and soft tissue mobility. 3. Patient will improve LEFS score to 59/80 to demonstrate improved functional mobility and increased independence with ADLs. 4. Patient will demonstrate improved balance by maintaining tandem stance for 30s with each foot placed forward, on an even surface, without upper extremity support to demonstrate a reduced fall risk. 5. Patient will report a 48 hour average pain of 5/10 on the numeric pain rating scale to demonstrate improvement in quality of life and increased functional capacity. 6. Pt will demonstrate HEP compliance by completing prescribed HEP 4-5x/week. 7. Pt will improve L knee ROM to 0-120 in order to demonstrate improved gait mechanics and other functional movement patterns. PT Brokerage Branch Manager Patient In 8 weeks: Goals 1. Patient will improve strength of L hip/Knee complex to 5/5 globally to improve gait mechanics, improve static/dynamic balance and to decrease fall risk. . 2. Patient will report a 48 hour average pain of 2-3/10 on the numeric pain rating scale to demonstrate improvement in quality of life and increased functional capacity. 4. Pt will be able to ascend/descend a flight of stairs with reciprocal stepping pattern and no hand rail to demonstrate improvements in home and community mobility . 5. Patient will demonstrate improved balance by performing tandem walking on an unstable surface for 10 feet without loss of balance or needed mental health assistant to demonstrate a reduced fall risk and improved community ambulation. 6. Patient will be able to stand/walk for 1 hour at one time to demonstrate improved community ambulation for activities, such as grocery shopping. 7. Pt will perform 10 [id number] from a standard chair without upper extremity assistance to demonstrate improved in-home mobility, decreased fall risk and improved LE strength. 8. Pt will be able to perform 5 body weight squats to 90 degrees of knee flexion, with proper mechanics and no increase in pain in order to demonstrate improved strength and improved functional mobility. Patient will improve LEFS score to 70/80 to demonstrate improved functional mobility and increased independence with ADLs. Outpatient Therapy Plan of Care Treatment Plan May Include Therapeutic Exercise Yes Including Home Exercise Program Manual Therapy Yes Techniques Neuromuscular Re- Yes education Therapeutic Yes Activities to Return to Previous Functional/Work Level Gait Training Yes ADL/Self Care Yes Education Thermal Modalities Yes Electrical Yes Stimulation Ultrasound/ Yes Phonophoresis Iontophoresis Yes Massage Yes Manual Lymphatic Yes Drainage Eval/Re-Eval Yes Frequency Times per week 2 Duration Number of Weeks 8 Addendums This patient is a No candidate for social or vocational rehab ? Patient/Guardian Yes verbally acknowledges understanding of treatment program and consents to further treatment? Patient/Guardian Yes verbally acknowledges understanding of diagnosis, prognosis and goals for treatment? Eval Complexity PT Charges 08806 - Moderate Complexity Shoulder/Elbow Eval Shoulder Objective Measurements Elbow Objective Measurements PHYSICIAN CERTIFICATION: I certify the specified therapy services for Sonia Aryan are required, authorized, and reviewed every 30 days.
== END 2025-01-17 23:59 | disposition home or self-care (01) ==
LOC: PT 09:00
PROVIDERS: PCP Student in an Organized Health Care Education/Training Program; Visit Provider Orthopaedic Surgery
DX: Z47.89 Encounter for other orthopedic aftercare (principal); Z98.890 Other specified postprocedural states
CPT/HCPCS: 97014; 97110; 97162; 97530; G0283

== ENCOUNTER 2025-02-08 17:00 | Outpatient (RCR) | payer BC, SELFPAY ==
--- NOTE | 2025-02-08 17:44 | HMH.RHREAS ---
Rehab Reassessment Rehab OP Re-assessment Start: 01/23/25 16:54 Freq: Status: Active Protocol: Document 02/08/25 17:05 KRAIG (Rec: 02/08/25 17:44 KRAIG [id number]) E-signed By Jayesh Wilburn PT Lower Extremity Functional Index Activities Today, do you or would you have any difficulty at all with: a.Any of your usual A little bit of difficulty work, housework or school activities b. Your usual A little bit of difficulty hobbies, recreational or sporting activities c. Getting into or No difficulty out of the bath d. Walking between No difficulty rooms e. Putting on your No difficulty shoes or socks f. Squatting A little bit of difficulty g. Lifting an object No difficulty , like a bag of groceries from the floor h. Performing light No difficulty activities around your home i. Performing heavy A little bit of difficulty activities around your home j. Getting into or No difficulty out of a car k. Walking 2 blocks No difficulty l. Walking a mile No difficulty m. Going up or down A little bit of difficulty 10 stairs (about 1 flight of stairs) n. Standing for 1 No difficulty hour o. Sitting for 1 No difficulty hour p. Running on even Moderate difficulty ground q. Running on uneven Moderate difficulty ground r. Making sharp Moderate difficulty turns while running fast s. Hopping Moderate difficulty t. Rolling over in No difficulty bed LEFI Score Lower Extremity 67 Functional Index Score Rehab Re-assessment Subjective Subjective Pt reports that she is 85-90% improved since beginning PT. Pt reports that squatting has gotten much easier, being up on her feet for long periods. Pt reports that her biggest difficulty is standing after being in a seated position for a long period. Pt reports that going down stairs is easier than going up stairs. Pt reports a slight pain with stairs, especially going up. Pt reports that her average pain over the past 48 hours is a 1-2/10. Pt reports that she is able to be on her feet for 2-3 hours at a time without requiring rest break Objective Objective Notes LEFS: 67 MMT: 5/5 globally to LLE Gait: No apparent abnormalities ROM: 0-125 Assessment Progress Assessment Progressing as Expected Assessment Notes Pt presents for 30 day reassessment at this time. Her PT treatment sessions have consisted of LE strengthening through both open and closed chain mechanisms. Pt has responded well at this time. She has met or nearly met all stated PT goals at this time. She presents prepared for discharge this date. PT Patient Goals PT Short Term In 4 weeks: MET Patient Goals 1. Patient will improve strength of L hip/knee complex to 4/5 globally to improve gait mechanics, improve static/dynamic balance and to decrease fall risk. 2. Patient will demonstrate a reduction in trigger point sensitivity to Grade 2 with manual palpation to improve comfort during activity and soft tissue mobility. 3. Patient will improve LEFS score to 59/80 to demonstrate improved functional mobility and increased independence with ADLs. 4. Patient will demonstrate improved balance by maintaining tandem stance for 30s with each foot placed forward, on an even surface, without upper extremity support to demonstrate a reduced fall risk. 5. Patient will report a 48 hour average pain of 5/10 on the numeric pain rating scale to demonstrate improvement in quality of life and increased functional capacity. 6. Pt will demonstrate HEP compliance by completing prescribed HEP 4-5x/week. 7. Pt will improve L knee ROM to 0-120 in order to demonstrate improved gait mechanics and other functional movement patterns. PT Halfway Patient In 8 weeks: Goals 1. Patient will improve strength of L hip/Knee complex to 5/5 globally to improve gait mechanics, improve static/dynamic balance and to decrease fall risk. . MET 2. Patient will report a 48 hour average pain of 2-3/10 on the numeric pain rating scale to demonstrate improvement in quality of life and increased functional capacity. MET 4. Pt will be able to ascend/descend a flight of stairs with reciprocal stepping pattern and no hand rail to demonstrate improvements in home and community mobility . MET 5. Patient will demonstrate improved balance by performing tandem walking on an unstable surface for 10 feet without loss of balance or needed veterinarian assistant to demonstrate a reduced fall risk and improved community ambulation. MET 6. Patient will be able to stand/walk for 1 hour at one time to demonstrate improved community ambulation for activities, such as grocery shopping. MET 7. Pt will perform 10 [id number] from a standard chair without upper extremity assistance to demonstrate improved in-home mobility, decreased fall risk and improved LE strength. MET 8. Pt will be able to perform 5 body weight squats to 90 degrees of knee flexion, with proper mechanics and no increase in pain in order to demonstrate improved strength and improved functional mobility. MET Patient will improve LEFS score to 70/80 to demonstrate improved functional mobility and increased independence with ADLs. NOT MET Plan Plan d/c from PT this date Frequency of Therapy 1/week Duration of Therapy 1 week Therapeutic Exercise Yes Including Home Exercise Program Manual Therapy Yes Techniques Neuromuscular Re- Yes education Therapeutic Yes Activities to Return to Previous Functional/Work Level Thermal Modalities Yes Electrical Yes Stimulation Time and Billing Re-Eval Time 10 Re-Eval Billing 0 Units Charge for PT No reassessment? PHYSICIAN CERTIFICATION: I certify the specified therapy services for Sonia Baeza are required, authorized, and reviewed every 30 days.
== END 2025-02-08 23:59 | disposition home or self-care (01) ==
LOC: PT 17:00
PROVIDERS: PCP Student in an Organized Health Care Education/Training Program; Visit Provider Orthopaedic Surgery
DX: S83.232D Complex tear of medial meniscus, current injury, left knee, subsequent encounter (principal); X58.XXXD Exposure to other specified factors, subsequent encounter
CPT/HCPCS: 97014; 97110; 97530; G0283